=== PATIENT | female | born 1980 | race Two or more races ===

== ENCOUNTER 2020-01-29 10:06 | Emergency (ER) | payer MEDICAID, OTHER ==
[~2020-01-29] VITALS: Ht 167.6 cm; Wt 79.4 kg
[2020-01-29 10:10] VITALS: BP 114/75
== END 2020-01-29 10:24 | disposition left against medical advice (07) ==
LOC: ER 10:06
DX: H57.12 Ocular pain, left eye (principal); Z53.21 Procedure and treatment not carried out due to patient leaving prior to being seen by health care provider